=== PATIENT | male | born 1955 | race Caucasian/White ===

== ENCOUNTER 2024-04-08 15:04 | Emergency (ER) | payer BC, OTHER ==
[2024-04-08] MEDS ORDERED: HYDROCODONE/APAP 7.5/325 MG TAB ONE (15:36)
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
[2024-04-08 18:50] VITALS: TEMP 98.1; O2SAT 99
[2024-04-08 18:51] VITALS: BP 141/81
== END 2024-04-08 18:41 | disposition home or self-care (01) ==
LOC: ER 15:04
DX: S09.90XA Unspecified injury of head, initial encounter (principal); M54.2 Cervicalgia; V49.59XA Passenger injured in collision with other motor vehicles in traffic accident, initial encounter; I10 Essential (primary) hypertension
CPT/HCPCS: 70450; 72125; 99283